=== PATIENT | female | born 1930 | race Caucasian/White ===

== ENCOUNTER 2018-03-26 20:42 | Observation (INO) ==
[2018-03-26 21:05] LABS: Basophils % 0.5 % (0.1-2.0); Eosinophils # 0.3 K/mm3 (0.0-0.4); Eosinophils % 4.8 % (0.1-12.0); Hematocrit 33.6 % (37.0-47.0); Hemoglobin 11.2 g/dL (12.2-16.2); Mean Corpuscular HGB Conc 33.3 g/dL (31.8-35.4); Mean Corpuscular Hemoglobin 31.3 pg (27.0-31.2); Mean Corpuscular Volume 93.9 fl (81-99); Mean Platelet Volume 8.2 fl (7.4-10.4); Monocytes # 0.4 K/mm3 (0.1-1.0); Neutrophils # 3.6 K/mm3 (1.8-7.8); Neutrophils % 67.8 % (37.0-80.0); Platelet Count 106 K/mm3 (142-424); Red Blood Count 3.58 M/mm3 (4.20-5.40); Red Cell Distribution Width 13.1 % (11.5-17.5); White Blood Count 5.2 K/mm3 (4.8-10.8)
[2018-03-26 21:17] LABS: Albumin Level 3.3 gm/dL (3.4-5.0); Albumin/Globulin Ratio 0.8 (1.1-1.8); Anion Gap 13.1 mEq/L (5-15); Bilirubin,Total 0.7 mg/dL (0.2-1.0); Calcium 8.4 mg/dL (8.5-10.1); Globulin 3.9 gm/dl (1.3-3.2); Potassium 4.1 mmoL/L (3.5-5.1); Total Protein,Serum 7.2 gm/dL (6.4-8.2)
[2018-03-26 21:18] LABS: Microscopic, Urine URINE MICROSCOPIC (MICROSCOPIC)
[2018-03-26 21:19] LABS: Appearance,Urine CLEAR (Clear); Bilirubin,Urine Negative (Negative); Blood, Urine Negative (Negative); Color,Urine YELLOW (Yellow); Glucose,Urine (UA) Negative (Negative); Ketones,Urine Negative (Negative); Leukocyte Esterase,Urine 1+ (Negative); PH,Urine 5.5 (5.0-8.5); Protein,Urine 1+ (Negative); Specific Gravity, Urine >= 1.030 (1.005-1.030); Urobilinogen,Urine 0.2 EU/dl (0.2)
[2018-03-26 21:30] LABS: Bacteria,Urine 4+ /lpf; RBC,Urine Occasional #/hpf (0-3); Squamous Epithelial Cell,Urine 20-50 #/hpf (0-5); WBC,Urine 20-50 #/hpf (0-3)
--- NOTE | 2018-03-26 21:57 | Emergency Department Note ---
ED Disposition Clinical Impression: Gastroenteritis, Renal insufficiency AAA (abdominal aortic aneurysm) Qualifiers: Presence of rupture: without rupture Qualified Code(s): I71.4 - Abdominal aortic aneurysm, without rupture Diabetes mellitus Qualifiers: Diabetes mellitus type: type 2 Diabetes mellitus termite technician insulin use: unspecified termite technician insulin use status Diabetes mellitus complication status: with unspecified complications Qualified Code(s): E11.8 - Type 2 diabetes mellitus with unspecified complications Disposition: Admitted as Observation Condition on Discharge: Good - Critical Care Critical Care Time: No Attestation: On 03/26/18, the high probability of a clinically significant, sudden or life threatening deterioration of the following system(s) required my full and direct attention, intervention and personal management. The time I documented below is in addition to time spent performing reported procedures but includes the following listed in this critical care notation. Medical Decision Making - Medical Records Medical records reviewed: Yes: I reviewed the patient's medical records. - [place] Inquiry Pt receiving controlled substance: No Vital Signs: 03/26/18 20:43 03/26/18 22:26 03/26/18 22:45 Temperature 98.5 F 98.6 F Temperature Source Oral Oral Pulse Rate Pulse Rate [Right Brachial] 76 88 78 Respiratory Rate 18 16 18 Blood Pressure Blood Pressure [Right Arm] 112/64 108/71 146/70 Blood Pressure Mean [Right Arm] 80 83 95 Blood Pressure Source [Right Arm] Automatic Cuff Automatic Cuff Blood Pressure Position [Right Arm] Sitting Sitting 02 Sat by Pulse Oximetry 95 95 97 Oxygen Delivery Method Room Air Room Air Room Air 03/26/18 22:49 Temperature 98.5 F Temperature Source Pulse Rate 79 Pulse Rate [Right Brachial] Respiratory Rate 16 Blood Pressure 109/58 Blood Pressure [Right Arm] Blood Pressure Mean [Right Arm] Blood Pressure Source [Right Arm] Blood Pressure Position [Right Arm] 02 Sat by Pulse Oximetry Oxygen Delivery Method Room Air - Lab Data Lab results reviewed: Yes: I reviewed the patient's lab results. Lab Results 03/26/18 20:50: WBC 5.2, RBC 3.58 L, Hgb 11.2 L, Hct 33.6 L, MCV 93.9, MCH 31.3 H, MCHC 33.3, RDW 13.1, Plt Count 106 L, MPV 8.2, Neut % (Auto) 67.8, Lymph % ( Auto) 19.0, [place] % (Auto) 8.0, Eos % (Auto) 4.8, Baso % (Auto) 0.5, Neut # (Auto ) 3.6, Lymph # (Auto) 1.0, [place] # (Auto) 0.4, Eos # (Auto) 0.3, Baso # (Auto) 0.0 03/26/18 20:50: Sodium 138, Potassium 4.1, Chloride 105, Carbon Dioxide 24, Anion Gap 13.1, BUN 23 H, Creatinine 1.24 H, Estimated Creat Clear 33, Estimated GFR 41 L, Est GFR ( Amer) 50 L, Glucose 129 H, Calcium 8.4 L, Total Bilirubin 0.7, AST 17, ALT 22, Alkaline Phosphatase 115, Total Protein 7.2 , Albumin 3.3 L, Globulin 3.9 H, Albumin/Globulin Ratio 0.8 L, Amylase 13 L 03/26/18 20:50: Lactate 2.3 H 03/26/18 20:50: Lipase 47 L 03/26/18 21:15: Urine Color Yellow, Urine Appearance Clear, Urine pH 5.5, Ur Specific [place] >= 1.030, Urine Protein 1+, Urine Glucose (UA) Negative, Urine Ketones Negative, Urine Blood Negative, Urine Nitrate Positive, Urine Bilirubin Negative, Urine Urobilinogen 0.2, Ur Leukocyte Esterase 1+ A, Urine RBC Occasional, Urine WBC 20-50, Ur Squamous Epith Cells 20-50, Ur Transition Epith Cell 3-5, Urine Bacteria 4+ Result diagrams: 03/26/18 20:50 03/26/18 20:50 Orders (Tests/Meds): ED MEDICATIONS Discontinued Medications Generic Name Dose Route Start Last Admin Trade Name Freq PRN Reason Stop Dose Admin Sodium Chloride 1,000 mls @ 999 mls/hr 03/26/18 21:00 03/26/18 20:57 Sod Chlor 0.9% 1000ml Bag IV 03/26/18 22:00 999 mls/hr .Q1H1M GLORIA Administration Ondansetron HCl 4 mg 03/26/18 20:54 03/26/18 20:57 Zofran 4mg/2ml Vial IV 03/26/18 20:55 4 mg ONCE ONE Administration ORDERS Category Date Time Status CT abdomen pelvis wo con Stat Cat Scan 03/26/18 20:54 Taken Diarrhea Panel, PCR Stat Lab 03/26/18 20:54 Ordered Lactic Acid Follow Up (RFLX 1) Stat Lab 03/26/18 21:21 Ordered Urine Culture Stat Micro 03/26/18 21:15 Received - CT Data CT Scan: Abdomen, Pelvis Time Received: 23:[address] Reviewed: Yes: I have viewed the radiologist's interpretation Preliminary Findings: Abnormal (nonspecific , aaa) - Physician Consults Physician Consulted: mohini Reason -: Admission Nausea/Vomiting/Diarrhea HPI - General Chief complaint: Nausea/Vomiting/Diarrhea Stated complaint: NAUSEA/VOMITING Time Seen by Provider: 03/26/18 21:00 Mode of Arrival: EMS Limitations: No Limitations Description of Symptoms (Recalled from ER Triage Doc. by RN): NAUSEA TODAY AND FEELING "HOT AND FREEZING." UNSURE IF IT WAS TODAY THAT SHE VOMITED LAST. RECEIVED FLU VACCINE MONDAY. PER EMS PT HAD DIARRHEA ALL OVER THE FLOOR. SHE TOLD EMS SHE DID VOMIT TODAY. - History of Present Illness HPI Narrative: wf brought by family with a couple day hx of vomiting and diarrhea with no sig abd pain but has weakness and dec ambulation with sl fe3ver and dec po intake MD complaint: nausea, vomiting, diarrhea Onset (ago): day(s) Associated Abdominal Pain: No Severity: moderate Associated symptoms: weakness - Related Data Home Medications Medication Instructions Recorded Confirmed Atorvastatin Calcium [Atorvastatin 80 mg PO DAILY 11/13/17 03/26/18 80mg Tab] Carvedilol [Carvedilol 6.25mg Tab] 6.25 mg PO BID 11/13/17 03/26/18 Clopidogrel Bisulfate [Plavix 75mg 75 mg PO DAILY 11/13/17 03/26/18 Tab] Isosorbide Mononitrate [Imdur 30mg 30 mg PO DAILY 11/13/17 03/26/18 ER tablet] Metformin HCl [Metformin HCl ER] 500 mg PO DAILY 11/13/17 03/26/18 Aspirin [Aspir 81] 81 mg PO DAILY 03/26/18 03/26/18 Cyanocobalamin (Vitamin B-12) 1,000 mcg PO DAILY 03/26/18 03/26/18 [B-12] Diphenoxylate HCl/Atropine 2.5 mg PO QIDP PRN 03/26/18 03/26/18 [Diphenoxylat-Atrop 2.5-0.025/5] Levothyroxine Sodium 88 mcg PO DAILY 03/26/18 03/26/18 [Levothyroxine 88mcg (0.088mg) Tab] Polyethylene Glycol 3350 [Miralax 17 gm PO DAILY 03/26/18 03/26/18 17gm Packet] Promethazine HCl [Phenergan 25mg 25 mg PO Q6HP PRN 03/26/18 03/26/18 tab] Allergies Allergy/AdvReac Type Severity Reaction Status Date / Time No Known Allergies Allergy Verified 03/26/18 20:50 [facility] History I have reviewed the patient's past medical history: Yes Medical History: Reports:: Diabetes Mellitus Type 2, Myocardial Infarction Denies:: Diabetes Mellitus Type 1 - Social History Alcohol Intake: never Occupational Status: retired Housing: house - Psychiatric History Expresses thoughts of harming self/others: None Suicide Plan Description: No Plan ROS Obtained: Yes All systems reviewed & no additional complaints - Constitutional Constitutional: Denies fever(s), Reports weakness - Eyes Eyes: Denies change in vision - ENT Ears, Nose, Mouth, and Throat: Denies sore throat - Cardiovascular Cardiovascular: Denies chest pain, Denies dyspnea - Respiratory Respiratory: No cough - Gastrointestinal Gastrointestingal: Reports: as per HPI, diarrhea, nausea, vomiting. Denies: bright red blood in stools, black, tarry stools - Genitourinary Female Genitourinary: Denies hematuria - Musculoskeletal Musculoskeletal: Denies joint pain, Denies back pain - Integumentary/Breasts Skin/Breast: Denies rash - Neurologic Neurologic: Denies headache(s), Denies seizure-like activity, Reports weakness Physical Exam - General General appearance: in no apparent distress - Head Head exam: normocephalic - Eye Eye exam: Present: PERRL, EOMI. Absent: scleral icterus - ENT ENT exam: Present: mucous membranes dry - Neck Neck exam: Present: trachea midline - Respiratory Respiratory exam: Present: other (dec bs bilat ). Absent: respiratory distress - Cardiovascular Cardiovascular exam: Present: regular rate, systolic murmur, +S4 - Abdominal Exam Abdominal exam: Present: soft - Extremities Exam Extremities exam: Present: pedal edema. Absent: calf tenderness - Neurological Exam Neurological exam: Present: alert, CN II-XII intact. Absent: normal gait, reflexes normal - Psychiatric Psychiatric exam: Present: normal affect - Skin Skin exam: Absent: rash
[2018-03-27 05:59] LABS: Basophils % 0.4 % (0.1-2.0); Eosinophils # 0.1 K/mm3 (0.0-0.4); Eosinophils % 2.8 % (0.1-12.0); Hematocrit 29.7 % (37.0-47.0); Lymphocytes % 26.5 K/mm3 (10-50); Mean Corpuscular HGB Conc 32.6 g/dL (31.8-35.4); Mean Corpuscular Hemoglobin 30.9 pg (27.0-31.2); Mean Corpuscular Volume 94.9 fl (81-99); Mean Platelet Volume 8.6 fl (7.4-10.4); Monocytes # 0.3 K/mm3 (0.1-1.0); Monocytes % 8.1 % (1.7-9.3); Neutrophils # 2.3 K/mm3 (1.8-7.8); Neutrophils % 62.2 % (37.0-80.0); Platelet Count 90 K/mm3 (142-424); Red Blood Count 3.13 M/mm3 (4.20-5.40); Red Cell Distribution Width 13.1 % (11.5-17.5); White Blood Count 3.8 K/mm3 (4.8-10.8)
[2018-03-27 06:07] LABS: Anion Gap 10.9 mEq/L (5-15); Calcium 7.8 mg/dL (8.5-10.1); Potassium 3.9 mmoL/L (3.5-5.1)
[2018-03-27 06:18] LABS: Hemoglobin 9.9 g/dL (12.2-16.2)
--- NOTE | 2018-03-27 07:37 | Pharmacy Consult Notes ---
[facility] Pharmacy VTE Monitoring - Patient Demographics Admission date: 03/26/18 Report Date: 03/27/18 Time: 07:37 Allergies/Adverse Reactions: Patient Allergies No Known Allergies Allergy (Verified 03/26/18 20:50) Height: 1.63 m Weight: 70.874 kg Patient Problems: Current Active Problems Gastroenteritis (Acute) AAA (abdominal aortic aneurysm) (Acute) Renal insufficiency (Acute) Diabetes mellitus (Acute) - VTE Risk Labs: VTE Related Lab Results Hgb 9.9 g/dL (12.2-16.2) L D 03/27/18 05:20 Hct 29.7 % (37.0-47.0) L 03/27/18 05:20 Plt Count 90 K/mm3 (142-424) L 03/27/18 05:20 BUN 18 mg/dL (7-18) 03/27/18 05:20 Creatinine 1.00 mg/dL (0.55-1.02) 03/27/18 05:20 Estimated Creat Clear 45 mL/min (0-300) 03/27/18 05:20 VTE Score: 6 VTE Risk Level: Moderate Risk - Prophylaxis VTE Prophylaxis Ordered?: Yes Types of VTE Prophylaxis: TEDS Knee High Location of Applied Device: Bilateral Lower Extremeties - VTE Diagnosis Confirmed Treatment or plan recommended: Continue Current Treatment
--- NOTE | 2018-03-27 18:07 | History & Physical Report ---
*Admission Date: 03/26/18 *Chief complaint: Nausea and vomiting *History of present illness: Ms. Chu is an 87-year-old female who presents from home via EMS due to 3-4 days of subjective fever and chills, and 1 day of nausea and vomiting. Her initial thought was this was a reaction to her flu shot which she received Monday. Workup in the emergency room showed urine significant for leukoesterase and nitrates, urine culture growing gram-negative rods and > 100, 000 CFU's. Patient denies any confusion, altered mental status. Reports feeling better this morning. Says she has had urinary tract infections in the past and they presented a similar manner. Denies cough, congestion, shortness of breath, chest pain, palpitations. [facility] History Medical History: Reports:: Cancer (stomach), Diabetes Mellitus Type 2, Myocardial Infarction Denies:: Diabetes Mellitus Type 1 Other Medical History: Reports: Hypothyroidism Other Surgeries: Yes: Cancer Surgery (Stomach), Cardiac Catheterization, Cholecystectomy, - *Social History Educational Level: Attended College Smoking Status: Never smoker Alcohol Intake: never Occupational Status: retired Housing: house Household Members: family - Psychiatric History Expresses thoughts of harming self/others: None Suicide Plan Description: No Plan Review of Systems - Review of Systems Review of systems:: pertinent systems reviewed and negative unless documented below - *Neurologic Reports weakness, Denies headache(s), Denies seizure-like activity Meds Home Medications Medication Instructions Recorded Confirmed Type Atorvastatin Calcium [Atorvastatin 80 mg PO DAILY 11/13/17 03/26/18 History 80mg Tab] Carvedilol [Carvedilol 6.25mg Tab] 6.25 mg PO BID 11/13/17 03/26/18 History Clopidogrel Bisulfate [Plavix 75mg 75 mg PO DAILY 11/13/17 03/26/18 History Tab] Metformin HCl [Metformin HCl ER] 500 mg PO DAILY 11/13/17 03/26/18 History Aspirin [Aspir 81] 81 mg PO DAILY 03/26/18 03/26/18 History Cyanocobalamin (Vitamin B-12) 1,000 mcg PO DAILY 03/26/18 03/26/18 History [B-12] Diphenoxylate HCl/Atropine 2.5 mg PO QIDP PRN 03/26/18 03/26/18 History [Diphenoxylat-Atrop 2.5-0.025/5] Levothyroxine Sodium 88 mcg PO DAILY 03/26/18 03/26/18 History [Levothyroxine 88mcg (0.088mg) Tab] Polyethylene Glycol 3350 [Miralax 17 gm PO DAILY 03/26/18 03/26/18 History 17gm Packet] Promethazine HCl [Phenergan 25mg 25 mg PO Q6HP PRN 03/26/18 03/26/18 History tab] Isosorbide Mononitrate [Imdur 60mg 60 mg PO DAILY 03/27/18 03/27/18 History ER tablet] Allergies Allergy/AdvReac Type Severity Reaction Status Date / Time No Known Allergies Allergy Verified 03/26/18 20:50 Exam Vital signs and Labs for Last 24 Hours: Temp Pulse Resp BP Pulse Ox 99.8 F H 76 18 148/74 95 03/27/18 15:23 03/27/18 15:23 03/27/18 15:23 03/27/18 15:23 03/27/18 15:23 Laboratory Results - last 24 hr 03/26/18 20:50: WBC 5.2, RBC 3.58 L, Hgb 11.2 L, Hct 33.6 L, MCV 93.9, MCH 31.3 H, MCHC 33.3, RDW 13.1, Plt Count 106 L, MPV 8.2, Neut % (Auto) 67.8, Lymph % ( Auto) 19.0, [place] % (Auto) 8.0, Eos % (Auto) 4.8, Baso % (Auto) 0.5, Neut # (Auto ) 3.6, Lymph # (Auto) 1.0, [place] # (Auto) 0.4, Eos # (Auto) 0.3, Baso # (Auto) 0.0 03/26/18 20:50: Sodium 138, Potassium 4.1, Chloride 105, Carbon Dioxide 24, Anion Gap 13.1, BUN 23 H, Creatinine 1.24 H, Estimated Creat Clear 33, Estimated GFR 41 L, Est GFR ( Amer) 50 L, Glucose 129 H, Calcium 8.4 L, Total Bilirubin 0.7, AST 17, ALT 22, Alkaline Phosphatase 115, Total Protein 7.2 , Albumin 3.3 L, Globulin 3.9 H, Albumin/Globulin Ratio 0.8 L, Amylase 13 L 03/26/18 20:50: Lactate 2.3 H 03/26/18 20:50: Lipase 47 L 03/26/18 21:15: Urine Color Yellow, Urine Appearance Clear, Urine pH 5.5, Ur Specific [place] >= 1.030, Urine Protein 1+, Urine Glucose (UA) Negative, Urine Ketones Negative, Urine Blood Negative, Urine Nitrate Positive, Urine Bilirubin Negative, Urine Urobilinogen 0.2, Ur Leukocyte Esterase 1+ A, Urine RBC Occasional, Urine WBC 20-50, Ur Squamous Epith Cells 20-50, Ur Transition Epith Cell 3-5, Urine Bacteria 4+ 03/26/18 23:40: Troponin I < 0.02 03/27/18 01:15: Lactate 1.0 03/27/18 02:20: Troponin I < 0.02 03/27/18 05:20: Troponin I < 0.02 03/27/18 05:20: WBC 3.8 L D, RBC 3.13 L, Hgb 9.9 L D, Hct 29.7 L, MCV 94.9, MCH 30.9, MCHC 32.6, RDW 13.1, Plt Count 90 L, MPV 8.6, Neut % (Auto) 62.2, Lymph % (Auto) 26.5, [place] % (Auto) 8.1, Eos % (Auto) 2.8, Baso % (Auto) 0.4, Neut # ( Auto) 2.3, Lymph # (Auto) 1.0, [place] # (Auto) 0.3, Eos # (Auto) 0.1, Baso # (Auto ) 0.0 03/27/18 05:20: Sodium 141, Potassium 3.9, Chloride 109 H, Carbon Dioxide 25, Anion Gap 10.9, BUN 18, Creatinine 1.00, Estimated Creat Clear 45, Estimated GFR 53 L, Est GFR ( Amer) 64 D, Glucose 94 D, Calcium 7.8 L, Magnesium 1.6 03/27/18 06:09: POC Glucose 94 03/27/18 11:03: POC Glucose 114 H 03/27/18 17:01: POC Glucose 139 H I & O for Last 24 hours: Intake & Output 03/24/18 03/25/18 03/26/18 03/27/18 23:59 23:59 23:59 23:59 Intake Total 1000 / 1000 1698 / 1698 Output Total 550 / 550 Balance 1000 / 1000 1148 / 1148 Weight 70.874 kg 70.874 kg Microbiology Reports for the Last 24 Hours: Microbiology 03/26/18 21:15 Urine,Catheterized Urine Culture - Preliminary Gram Negative Rods - *Routine HEENT Exam Head: Present: normocephalic, atraumatic Eye: Present: EOMI, PERRL ENT: Present: mucous membranes moist - *Routine Neck Exam Present: supple, full ROM. Absent: JVD - *Routine Respiratory Exam Present: CTA bilaterally. Absent: accessory muscle use, prolonged expiratory phase, rales, wheezes - *Routine Cardiovascular Exam Present: RRR, Normal S1, Normal S2. Absent: murmur - *Routine Abdominal Exam Present: soft, normoactive bowel sounds, tenderness (Suprapubic) - *Routine Rectal Exam Patient deferred: visual exam - *Routine Exam Patient deferred: external exam - *Routine Extremities Exam Absent: cyanosis, clubbing, edema - *Routine Skin Exam Present: intact. Absent: cyanosis - *Routine Neurological Exam Present: alert, oriented X3, CN II-XII intact. Absent: altered mental status H&P: Result - Impressions UA significant for leukoesterase and nitrite, urine culture positive for gram- negative rods Assessment and Plan (1) Urinary tract infection Current visit: Yes Status: Acute Qualifiers: Urinary tract infection type: acute cystitis Category: Medical Code(s): N39.0 - Urinary tract infection, site not specified Continue Rocephin, culture pending speciation and sensitivity, de-escalate antibiotics as results return. (2) Renal insufficiency Current visit: Yes Status: Acute Category: Medical Code(s): N28.9 - Disorder of kidney and ureter, unspecified Acute kidney injury, resolved with fluid resuscitation. Monitor with morning labs. Avoid nephrotoxic's. (3) Coronary artery disease Current visit: Yes Status: Chronic Qualifiers: Associated angina: without angina Category: Medical Code(s): I25.10 - Atherosclerotic heart disease of solomon coronary artery without angina pectoris Continue home regimen of goal-directed therapy with Plavix, aspirin, carvedilol , isosorbide (4) Hypothyroidism (acquired) Current visit: Yes Status: Chronic Category: Medical Code(s): E03.9 - Hypothyroidism, unspecified Continue home levothyroxine
[2018-03-28 06:09] LABS: Anion Gap 9.6 mEq/L (5-15); Calcium 8.1 mg/dL (8.5-10.1); Potassium 3.6 mmoL/L (3.5-5.1)
[2018-03-28 06:13] LABS: Basophils % 0.3 % (0.1-2.0); Eosinophils # 0.3 K/mm3 (0.0-0.4); Eosinophils % 6.4 % (0.1-12.0); Hematocrit 29.7 % (37.0-47.0); Hemoglobin 9.9 g/dL (12.2-16.2); Lymphocytes # 1.1 K/mm3 (0.7-4.5); Lymphocytes % 22.4 K/mm3 (10-50); Mean Corpuscular HGB Conc 33.1 g/dL (31.8-35.4); Mean Corpuscular Hemoglobin 31.4 pg (27.0-31.2); Mean Corpuscular Volume 94.8 fl (81-99); Mean Platelet Volume 8.3 fl (7.4-10.4); Monocytes # 0.4 K/mm3 (0.1-1.0); Monocytes % 8.4 % (1.7-9.3); Neutrophils % 62.4 % (37.0-80.0); Platelet Count 89 K/mm3 (142-424); Red Blood Count 3.14 M/mm3 (4.20-5.40); Red Cell Distribution Width 13.2 % (11.5-17.5); White Blood Count 4.8 K/mm3 (4.8-10.8)
--- NOTE | 2018-03-28 08:17 | Discharge Summary ---
General - General Admission date:: 03/26/18 Discharge date: 03/28/18 HPI HPI: Ms. Chu is an 87-year-old female who presents from home via EMS due to 3-4 days of subjective fever and chills, and 1 day of nausea and vomiting. Her initial thought was this was a reaction to her flu shot which she received Monday. Workup in the emergency room showed urine significant for leukoesterase and nitrates, urine culture growing gram-negative rods and > 100,000 CFU's. Patient denies any confusion, altered mental status. Reports feeling better this morning. Says she has had urinary tract infections in the past and they presented a similar manner. Denies cough, congestion, shortness of breath, chest pain, palpitations. Hospital Course Hospital Course: Patient was admitted, placed on ceftriaxone for presumptive UTI. She did indeed have a urinary tract infection with E. coli, pansensitive to all antibiotics tested. This morning she is vastly improved, no further nausea or vomiting, eating well, has resumed most of her self-care activities and wishes to be discharged home. Plan will be to discharge home with Cefdinir. I will follow her in the office in 1 week. Objective Vital signs: Temp Pulse Resp BP Pulse Ox 98.8 F 82 18 130/65 94 L 03/28/18 08:00 03/28/18 08:00 03/28/18 08:00 03/28/18 08:00 03/28/18 08:00 Narrative: Patient is awake, alert, oriented 3. Oropharynx clear. Moist. Lungs have good air movement, heart rate regular. Trace ankle edema as previous noted. Move all arms and legs without problems. No CVA tenderness or abdominal numbness. Results Labs on day of discharge: Labs from last 24 hours 03/28/18 03/28/18 03/28/18 06:29 05:36 05:36 WBC 4.8 D RBC 3.14 L Hgb 9.9 L Hct 29.7 L MCV 94.8 MCH 31.4 H MCHC 33.1 RDW 13.2 Plt Count 89 L MPV 8.3 Neut % (Auto) 62.4 Lymph % (Auto) 22.4 [place] % (Auto) 8.4 Eos % (Auto) 6.4 Baso % (Auto) 0.3 Neut # (Auto) 3.0 Lymph # (Auto) 1.1 [place] # (Auto) 0.4 Eos # (Auto) 0.3 Baso # (Auto) 0.0 Sodium 136 Potassium 3.6 Chloride 106 Carbon Dioxide 24 Anion Gap 9.6 BUN 15 Creatinine 0.98 Estimated Creat Clear 45 Estimated GFR 54 L Est GFR ( Amer) 65 Glucose 112 H POC Glucose 116 H Calcium 8.1 L 03/27/18 03/27/18 03/27/18 21:22 17:01 11:03 WBC RBC Hgb Hct MCV MCH MCHC RDW Plt Count MPV Neut % (Auto) Lymph % (Auto) [place] % (Auto) Eos % (Auto) Baso % (Auto) Neut # (Auto) Lymph # (Auto) [place] # (Auto) Eos # (Auto) Baso # (Auto) Sodium Potassium Chloride Carbon Dioxide Anion Gap BUN Creatinine Estimated Creat Clear Estimated GFR Est GFR ( Amer) Glucose POC Glucose 118 H 139 H 114 H Calcium DS: Diagnosis - Discharge Diagnosis (1) Urinary tract infection Status: Acute (2) Renal insufficiency Status: Resolved (3) Coronary artery disease Status: Chronic (4) Hypothyroidism (acquired) Status: Chronic Discharge Plan - Patient Discharge Instructions ACTIVITY: Continue current activity DIET: continue same diet - Follow up Plan Follow up with: Jt Santos MD [Primary Care Provider] - 1 week Disposition: Home, Self-Skilled Nursing Medications: Home Medications Medication Instructions Recorded Confirmed Type Atorvastatin Calcium [Atorvastatin 80 mg PO DAILY 11/13/17 03/26/18 History 80mg Tab] Carvedilol [Carvedilol 6.25mg Tab] 6.25 mg PO BID 11/13/17 03/26/18 History Clopidogrel Bisulfate [Plavix 75mg 75 mg PO DAILY 11/13/17 03/26/18 History Tab] Metformin HCl [Metformin HCl ER] 500 mg PO DAILY 11/13/17 03/26/18 History Aspirin [Aspir 81] 81 mg PO DAILY 03/26/18 03/26/18 History Cyanocobalamin (Vitamin B-12) 1,000 mcg PO DAILY 03/26/18 03/26/18 History [B-12] Diphenoxylate HCl/Atropine 2.5 mg PO QIDP PRN 03/26/18 03/26/18 History [Diphenoxylat-Atrop 2.5-0.025/5] Levothyroxine Sodium 88 mcg PO DAILY 03/26/18 03/26/18 History [Levothyroxine 88mcg (0.088mg) Tab] Polyethylene Glycol 3350 [Miralax 17 gm PO DAILY 03/26/18 03/26/18 History 17gm Packet] Promethazine HCl [Phenergan 25mg 25 mg PO Q6HP PRN 03/26/18 03/26/18 History tab] Isosorbide Mononitrate [Imdur 60mg 60 mg PO DAILY 03/27/18 03/27/18 History ER tablet] Prescriptions/Medication Reconciliation: New Cefdinir [Omnicef 300mg Capsule] 300 mg PO BID #10 cap Continue Clopidogrel Bisulfate [Plavix 75mg Tab] 75 mg PO DAILY Carvedilol [Carvedilol 6.25mg Tab] 6.25 mg PO BID Atorvastatin Calcium [Atorvastatin 80mg Tab] 80 mg PO DAILY Levothyroxine Sodium [Levothyroxine 88mcg (0.088mg) Tab] 88 mcg PO DAILY Polyethylene Glycol 3350 [Miralax 17gm Packet] 17 gm PO DAILY Promethazine HCl [Phenergan 25mg tab] 25 mg PO Q6HP PRN PRN Reason: Nausea And Vomiting Metformin HCl [Metformin HCl ER] 500 mg PO DAILY Aspirin [Aspir 81] 81 mg PO DAILY Cyanocobalamin (Vitamin B-12) [B-12] 1,000 mcg PO DAILY Diphenoxylate HCl/Atropine [Diphenoxylat-Atrop 2.5-0.025/5] 2.5 mg PO QIDP PRN PRN Reason: OTHER Isosorbide Mononitrate [Imdur 60mg ER tablet] 60 mg PO DAILY
== END 2018-03-28 10:19 | disposition home or self-care (01) ==
LOC: ER 20:42 → 2ND 20:42
PROVIDERS: ADMIT Family Medicine; ATTEND Internal Medicine Adolescent Medicine
CPT/HCPCS: 36415; 74176; 80048; 80053; 81001; 82150; 82962; 83605; 83690; 83735; 84484; 85025; 87086; 87088; 87186; 96365; 96375; 99284; G0378; J2405

== ENCOUNTER 2018-07-23 11:01 | Inpatient (IN) ==
[2018-07-23 11:20] LABS: Basophils % 0.4 % (0.1-2.0); Eosinophils # 0.4 K/mm3 (0.0-0.4); Eosinophils % 4.8 % (0.1-12.0); Hematocrit 33.2 % (37.0-47.0); Hemoglobin 10.6 g/dL (12.2-16.2); Lymphocytes # 1.8 K/mm3 (0.7-4.5); Lymphocytes % 20.4 % (10-50); Mean Corpuscular HGB Conc 31.8 g/dL (31.8-35.4); Mean Corpuscular Volume 97.3 fl (81-99); Monocytes # 0.5 K/mm3 (0.1-1.0); Monocytes % 5.4 % (1.7-9.3); Platelet Count 126 K/mm3 (142-424); Red Blood Count 3.41 M/mm3 (4.20-5.40); Red Cell Distribution Width 14.8 % (11.5-17.5); White Blood Count 8.7 K/mm3 (4.8-10.8)
--- NOTE | 2018-07-23 11:25 | Emergency Department Note ---
ED Disposition Clinical Impression: STEMI (ST elevation myocardial infarction) Disposition: Admitted as Observation Condition on Discharge: Serious Referrals: Provider,Referral, [Primary Care Provider] - Time of Disposition: 12:15 - Critical Care Critical Care Time: No Attestation: On 07/23/18, the high probability of a clinically significant, sudden or life threatening deterioration of the following system(s) required my full and direct attention, intervention and personal management. The time I documented below is in addition to time spent performing reported procedures but includes the following listed in this critical care notation. Medical Decision Making - [place] Inquiry Pt receiving controlled substance: No Vital Signs: 07/23/18 11:01 07/23/18 11:35 07/23/18 12:32 Temperature 98.3 F 98.3 F Temperature Source Oral Oral Pulse Rate 62 Pulse Rate [Left Radial] 56 L Respiratory Rate 20 18 Blood Pressure 145/78 H Blood Pressure [Left Arm] 159/79 H Blood Pressure [Right Arm] 150/75 H 167/41 H Blood Pressure Mean [Left Arm] 105 Blood Pressure Mean [Right Arm] 100 83 Blood Pressure Source Automatic Cuff Blood Pressure Source [Left Arm] Automatic Cuff Blood Pressure Source [Right Arm] Automatic Cuff Blood Pressure Position Sitting Blood Pressure Position [Left Arm] Sitting Blood Pressure Position [Right Arm] Sitting Sitting 02 Sat by Pulse Oximetry 98 Oxygen Delivery Method Room Air Room Air - Lab Data Lab Results 07/23/18 11:07: WBC 8.7, RBC 3.41 L, Hgb 10.6 L, Hct 33.2 L, MCV 97.3, MCH 31.0, MCHC 31.8, RDW 14.8, Plt Count 126 L, MPV 8.0, Neut % (Auto) 69.0, Lymph % (Auto) 20.4, [place] % (Auto) 5.4, Eos % (Auto) 4.8, Baso % (Auto) 0.4, Neut # (Auto) 6.0, Lymph # (Auto) 1.8, [place] # (Auto) 0.5, Eos # (Auto) 0.4, Baso # (Auto) 0.0 07/23/18 11:07: PT 10.7, INR 1.04 07/23/18 11:07: Sodium 139, Potassium 4.3, Chloride 106, Carbon Dioxide 24, Anion Gap 13.3, BUN 19 H, Creatinine 1.04 H, Estimated Creat Clear 40, Estimated GFR 50 L, Est GFR ( Amer) 61, Glucose 172 H, Calcium 8.8, Troponin I 0.33 H Result diagrams: 07/23/18 11:07 07/23/18 11:07 Orders (Tests/Meds): ED MEDICATIONS Generic Name Dose Route Start Last Admin Trade Name Freq PRN Reason Stop Dose Admin Diphenhydramine HCl 50 mg 07/23/18 12:32 Benadryl 50mg/1ml Vial IV 07/23/18 12:33 ONCE ONE Fentanyl Citrate 50 mcg 07/23/18 12:32 Fentanyl 250mcg/5ml Vial IV 07/24/18 12:33 Q3MINP PRN Moderate to Severe Pain Fentanyl Citrate 25 mcg 07/23/18 12:32 Fentanyl 250mcg/5ml Vial IV 07/24/18 12:33 Q3MINP PRN Moderate to Severe Pain Flumazenil 0.2 mg 07/23/18 12:32 Romazicon 0.1mg/Ml 5ml Vial IV 07/23/18 23:00 NEEDED PRN Sedation Heparin Sodium (Porcine) 10,000 unit 07/23/18 12:32 Heparin 1,000 Units/Ml 10ml Vial (Leather Lacer) IV 07/23/18 16:33 NEEDED PRN Emergency Box Asphalt Tamping Machine Operator Heparin Sodium/Sodium Chloride 3,000 unit 07/23/18 12:32 Heparin 1000 Units/500ml Ns (Leather Lacer) IV 07/23/18 12:33 ONCE ONE Sodium Chloride 1,000 mls @ 25 mls/hr 07/23/18 12:45 Sod Chlor 0.9% 1000ml Bag IV 07/24/18 12:33 .Q25H GLORAI Lidocaine HCl 20 ml 07/23/18 12:32 Lidocaine 1% 20ml Mdv IJ 07/23/18 12:33 ONCE ONE Midazolam HCl 1 mg 07/23/18 12:32 Midazolam 2mg/2ml Vial IV 07/24/18 12:33 Q3MINP PRN Sedation Midazolam HCl 1 mg 07/23/18 12:32 Midazolam 1mg/Ml 5ml Vial IV 07/24/18 12:33 Q3MINP PRN Sedation Naloxone HCl 0.4 mg 07/23/18 12:32 Narcan 0.4mg/Ml Vial IV 07/24/18 12:33 Q5MINP PRN Decreased respirations Nitroglycerin 800 mcg 07/23/18 12:32 Nitroglycerin 800mcg/8ml Syr (Leather Lacer) IV 07/24/18 12:33 NEEDED PRN Emergency Box Asphalt Tamping Machine Operator Sodium Chloride 10 ml 07/23/18 11:12 Saline Flush 10ml Syringe IV 08/22/18 11:11 NEEDED PRN Maintain IV Site Sodium Chloride 10 ml 07/23/18 12:32 Saline Flush 10ml Syringe IV 08/22/18 12:31 NEEDED PRN Maintain IV Site Verapamil HCl 2.5 mg 07/23/18 12:32 Verapamil 2.5mg/Ml 2ml Vial IV 07/23/18 12:33 ONCE ONE Discontinued Medications Generic Name Dose Route Start Last Admin Trade Name Freq PRN Reason Stop Dose Admin Heparin Sodium (Porcine) 6,600 unit 07/23/18 12:09 07/23/18 12:15 Heparin Sodium 5,000 Units/Ml Vial 100 unit/kg (6600 unit) 07/23/18 12:10 6,600 unit IV Administration ONCE ONE Morphine Sulfate 2 mg 07/23/18 12:08 07/23/18 12:33 Morphine 2mg/Ml Syringe IV 07/23/18 12:09 2 mg ONCE ONE Administration Nitroglycerin 1 gm 07/23/18 11:22 07/23/18 12:00 Nitroglycerin 1 Inch Oint Udp TD 07/23/18 11:23 1 gm ONCE ONE Administration Ondansetron HCl 4 mg 07/23/18 12:32 07/23/18 12:33 Zofran 4mg/2ml Vial IV 07/23/18 12:33 4 mg ONCE ONE Administration Ticagrelor 180 mg 07/23/18 11:23 07/23/18 11:33 Brilinta 90mg Tablet PO 07/23/18 11:24 180 mg ONCE ONE Administration Chest Pain HPI - General Chief Complaint: Chest Pain Stated Complaint: chest pain Time Seen by Provider: 07/23/18 11:10 Mode of Arrival: Wheelchair Limitations: No Limitations Description of Symptoms (Recalled from ER Triage Doc. by RN): Pt states that she started with chest pain one hour ago with pain going down her left arm. States she took 3 nitro pills and a full dose aspirin and her pain has decreased. - History of Present Illness MD complaint: chest pain Onset (ago): hour(s) Duration: constant, other (now improved) Pain location: substernal, left chest Severity: moderate Quality: heaviness Relieving factors: nitroglycerin Exacerbating factors: nothing Risk Factors for CAD: Hypertension, Hypercholesterolemia, Family Hx of CAD Treatments prior to or on arrival for Cardiac Chest Pain: aspirin, nitroglycerin - Related Data Home Medications Medication Instructions Recorded Confirmed Atorvastatin Calcium [Atorvastatin 80 mg PO DAILY 11/13/17 07/23/18 80mg Tab] Carvedilol [Carvedilol 6.25mg Tab] 6.25 mg PO BID 11/13/17 07/23/18 Clopidogrel Bisulfate [Plavix 75mg 75 mg PO DAILY 11/13/17 07/23/18 Tab] Metformin HCl [Metformin HCl ER] 500 mg PO DAILY 11/13/17 07/23/18 Aspirin [Aspir 81] 81 mg PO DAILY 03/26/18 07/23/18 Cyanocobalamin (Vitamin B-12) 1,000 mcg PO DAILY 03/26/18 07/23/18 [B-12] Levothyroxine Sodium 88 mcg PO DAILY 03/26/18 07/23/18 [Levothyroxine 88mcg (0.088mg) Tab] Polyethylene Glycol 3350 [Miralax 17 gm PO DAILY 03/26/18 07/23/18 17gm Packet] Isosorbide Mononitrate [Imdur 60mg 60 mg PO DAILY 03/27/18 07/23/18 ER tablet] Allergies Allergy/AdvReac Type Severity Reaction Status Date / Time No Known Allergies Allergy Verified 03/26/18 20:50 [facility] History - Hepatitis A Screen Drug use history?: No High risk sexual behaviors?: No History of sexually transmitted infection?: No Currently employed?: No Childcare worker?: No Do you have indoor plumbing?: Yes Do you have electricity?: Yes Attestation statement:: This patient has been screened for Hepatitis A risk factors. I have reviewed the patient's past medical history: Yes Medical History: Reports:: Cancer (stomach), Diabetes Mellitus Type 2, Myocardial Infarction Denies:: Diabetes Mellitus Type 1, MRSA, Seizures Other Medical History: Reports: Hypothyroidism Other Surgeries: Yes: Cancer Surgery (Stomach), Cardiac Catheterization, Cholecystectomy, Amputation: No Fractures: No - Social History Smoking Status: Never smoker Alcohol Intake: never Occupational Status: retired Housing: house Household Members: family - Psychiatric History Expresses thoughts of harming self/others: None Suicide Plan Description: No Plan ROS Obtained: Yes All systems reviewed & no additional complaints - Constitutional Constitutional: Reports system reviewed and no additional complaints, except as docu, Reports weakness - Eyes Eyes: Reports system reviewed and no additional complaints, except as docu - ENT Ears, Nose, Mouth, and Throat: Reports system reviewed and no additional complaints, except as docu, Denies throat swelling - Cardiovascular Cardiovascular: Reports system reviewed and no additional complaints, except as docu, Reports chest pain, Reports chest pain at rest, Reports chest pain with activity, Denies dyspnea on exertion, Denies rapid heart rate, Denies slow heart rate - Respiratory Respiratory: Yes system reviewed and no additional complaints, except as docu, No chest congestion, No cough, No non-productive cough, No pain with cough - Musculoskeletal Musculoskeletal: Denies muscle cramps, Denies muscle weakness, Denies muscle aches, Denies stiffness - Integumentary/Breasts Skin/Breast: Reports system reviewed and no additional complaints, except as docu, Denies rash - Neurologic Neurologic: Reports system reviewed and no additional complaints, except as docu, Denies focal weakness, Denies seizure-like activity, Denies sensory deficit - Endocrine Endocrine: Denies palpitations - Hematologic/Lymphatic Henatologic/Lymphatic: Denies easy bleeding, Denies easy bruising Physical Exam - General General appearance: appears intoxicated - Head Head exam: atraumatic, normocephalic - ENT ENT exam: Present: normal exam, normal oropharynx, mucous membranes moist, mucous membranes dry - Neck Neck exam: Present: normal inspection, full ROM - Chest Chest inspection: Present: normal inspection, symmetric chest wall rise - Respiratory Respiratory exam: Present: normal lung sounds bilaterally, respiratory distress, wheezes - Cardiovascular Cardiovascular exam: Present: regular rate, normal rhythm, normal heart sounds. Absent: bradycardia, tachycardia, JVD - Abdominal Exam Abdominal exam: Present: soft. Absent: distention, tenderness, guarding, rebound, rigidity, mass - Extremities Exam Extremities exam: Present: normal inspection, full ROM, normal capillary refill. Absent: tenderness - Neurological Exam Neurological exam: Present: alert
[2018-07-23 11:28] LABS: INR 1.04 (0.9-1.1); Prothrombin Time 10.7 seconds (9.4-11.8)
[2018-07-23 11:35] LABS: Anion Gap 13.3 mEq/L (5-15); Calcium 8.8 mg/dL (8.5-10.1); Potassium 4.3 mmoL/L (3.5-5.1)
--- NOTE | 2018-07-23 19:08 | History & Physical Report ---
*Admission Date: 07/23/18 *Chief complaint: Chest pain and dyspnea *History of present illness: 87-year-old white female with history of type 2 diabetes, controlled well with metformin, hyperlipidemia and previous history of coronary atherosclerosis with several stent placements in the remote past-detailed in cardiology procedure note-who awoke this morning with some crushing chest pain and dyspnea, was brought to the emergency department. Elevated ST segments and troponins were noted, diagnosed with STEMI and taken emergently to the catheterization lab where 2 stents were placed. I am seeing her now on the floor and she is pain-free and comfortable. [facility] History I have reviewed the patient's past medical history: Yes Medical History: Reports:: Cancer (stomach), Coronary Artery Disease, Diabetes Mellitus Type 2, Myocardial Infarction Denies:: Diabetes Mellitus Type 1, MRSA, Seizures Other Medical History: Reports: Hypothyroidism Laterality Cases: Bilateral: Total Knee Replacement Other Surgeries: Yes: Cancer Surgery (Stomach), Cardiac Catheterization, Cholecystectomy, Coronary Stent, Amputation: No Fractures: No - *Social History Educational Level: Attended College Smoking Status: Never smoker Alcohol Intake: never Occupational Status: retired Housing: house Household Members: family - Psychiatric History Expresses thoughts of harming self/others: None Suicide Plan Description: No Plan *Family Hx:: No significant family history Review of Systems - Review of Systems Review of systems:: pertinent systems reviewed and negative unless documented below - Constitutional Denies anorexia, Denies body ache(s) - Eyes Denies blind spots - ENT Denies abnormal hearing, Denies bleeding gums - *Cardiovascular Reports chest pain, Reports chest pain at rest, Reports chest pain with activity, Reports shortness of breath, Reports shortness of breath with activity, Reports irregular heart rhythm - *Respiratory Denies change in phlegm color, Denies chest congestion, Denies cough - *Gastrointestinal Denies abdominal pain, Denies belching, Denies bloating - *Musculoskeletal Denies abnormal walking, Denies joint pain - Integumentary/Breasts Denies acne - *Neurologic Reports weakness, Denies localized weakness, Denies seizure-like activity, Denies sensory deficit - Psychiatric Denies abnormal sleep pattern, Denies lack of enjoyment - Endocrine Denies cold intolerance, Denies rapid, pounding, or irregular heartbeat Meds Home Medications Medication Instructions Recorded Confirmed Type Atorvastatin Calcium [Atorvastatin 80 mg PO DAILY 11/13/17 07/23/18 History 80mg Tab] Carvedilol [Carvedilol 6.25mg Tab] 6.25 mg PO BID 11/13/17 07/23/18 History Clopidogrel Bisulfate [Plavix 75mg 75 mg PO DAILY 11/13/17 07/23/18 History Tab] Metformin HCl [Metformin HCl ER] 500 mg PO DAILY 11/13/17 07/23/18 History Aspirin [Aspir 81] 81 mg PO DAILY 03/26/18 07/23/18 History Cyanocobalamin (Vitamin B-12) 1,000 mcg PO DAILY 03/26/18 07/23/18 History [B-12] Levothyroxine Sodium 88 mcg PO DAILY 03/26/18 07/23/18 History [Levothyroxine 88mcg (0.088mg) Tab] Polyethylene Glycol 3350 [Miralax 17 gm PO DAILY 03/26/18 07/23/18 History 17gm Packet] Isosorbide Mononitrate [Imdur 60mg 60 mg PO DAILY 03/27/18 07/23/18 History ER tablet] Allergies Allergy/AdvReac Type Severity Reaction Status Date / Time No Known Allergies Allergy Verified 07/23/18 15:32 Exam Vital signs and Labs for Last 24 Hours: Temp Pulse Resp BP Pulse Ox 97.7 F 81 19 139/57 L 98 07/23/18 14:37 07/23/18 18:00 07/23/18 18:00 07/23/18 18:00 07/23/18 18:00 Laboratory Results - last 24 hr 07/23/18 11:07: WBC 8.7, RBC 3.41 L, Hgb 10.6 L, Hct 33.2 L, MCV 97.3, MCH 31.0, MCHC 31.8, RDW 14.8, Plt Count 126 L, MPV 8.0, Neut % (Auto) 69.0, Lymph % (Auto) 20.4, [place] % (Auto) 5.4, Eos % (Auto) 4.8, Baso % (Auto) 0.4, Neut # (Auto) 6.0, Lymph # (Auto) 1.8, [place] # (Auto) 0.5, Eos # (Auto) 0.4, Baso # (Auto) 0.0 07/23/18 11:07: PT 10.7, INR 1.04 07/23/18 11:07: Sodium 139, Potassium 4.3, Chloride 106, Carbon Dioxide 24, Anion Gap 13.3, BUN 19 H, Creatinine 1.04 H, Estimated Creat Clear 40, Estimated GFR 50 L, Est GFR ( Amer) 61, Glucose 172 H, Calcium 8.8, Troponin I 0.33 H 07/23/18 12:57: Activated Clotting Time 221 H* 07/23/18 13:17: Activated Clotting Time 328 H* D 07/23/18 16:29: POC Glucose 146 H I & O for Last 24 hours: Intake & Output 07/21/18 07/22/18 07/23/18 07/24/18 11:59 11:59 11:59 11:59 Intake Total 484 / 484 Balance 484 / 484 Weight 145 lb 153 lb 6 oz Narrative: Patient is pleasant. Has a little bit of epigastric swelling but denies chest pain like she had previously. Heart rate regular. Abdomen soft, lungs are clear, oropharynx clear, no JVD. No peripheral edema. Warm and well-perfused extremities. Able to move all extremities well. Assessment and Plan (1) Epigastric pain Current visit: Yes Status: Acute Category: Medical Code(s): R10.13 - Epigastric pain Trial of GI cocktail. (2) STEMI (ST elevation myocardial infarction) Current visit: Yes Status: Acute Category: Medical Code(s): I21.3 - ST elevation (STEMI) myocardial infarction of unspecified site (3) Coronary artery disease Current visit: No Status: Chronic Category: Medical Code(s): I25.10 - Atherosclerotic heart disease of [place] coronary artery without angina pectoris ANGIOGRAPHIC RESULTS: 1. The left main artery is normal 2. The left anterior descending artery has proximal 30 and 40% stenoses with mid vessel 40% stenoses and a distal 70-80% stenosis along a tortuous bend. The very distal LAD is bluntly occluded with angiographic evidence of thrombus distally 3. The ramus intermedius is a large caliber vessel with a stent in the proximal segment which has diffuse 30-40% concentric in-stent restenosis. The vessel has FLAKITA III flow and supplies a moderate amount of distal myocardium 3. The circumflex artery is a small vestigial vessel and has a proximal to mid vessel focal 90% stenosis however the distal myocardium is small 4. The right coronary artery is a large dominant vessel has proximal tendon 20% stenoses mid vessel 70% focal stenosis. The stent in the proximal vessel is widely patent as is the stent in the distal segment. The focal mid vessel stenosis was calcified without a stent. The distal vessel has 80-90% stenosis as it enters into the posterior lateral ventricular branch and a 60-70% stenosis in the ostial proximal segment of the posterior descending artery 5. The [place] ventriculogram reveals not performed 6. The left ventricular end-diastolic pressure not obtained IMPRESSION: Coronary artery disease as described above Unsuccessful angioplasty of the distal left anterior descending artery Persistent severe stenosis and a very small vestigial nondominant circumflex artery Severe disease in the mid dominant right coronary artery which was revascularized to less than 10% stenosis with 1 drug-eluting stent PLAN: 1. Brilinta and aspirin for one year 2. LDL less than 55 3. Avoidance of tobacco products 4. Medical management for the remaining coronary artery disease 5. Cardiac rehabilitation (4) Diabetes mellitus Current visit: No Status: Chronic Category: Medical Code(s): E11.9 - Type 2 diabetes mellitus without complications Hold metformin, sliding scale insulin
[2018-07-24 05:51] LABS: Basophils % 0.2 % (0.1-2.0); Eosinophils # 0.1 K/mm3 (0.0-0.4); Eosinophils % 0.5 % (0.1-12.0); Hematocrit 31.6 % (37.0-47.0); Hemoglobin 10.3 g/dL (12.2-16.2); Lymphocytes # 1.1 K/mm3 (0.7-4.5); Lymphocytes % 9.8 % (10-50); Mean Corpuscular HGB Conc 32.5 g/dL (31.8-35.4); Mean Corpuscular Hemoglobin 31.3 pg (27.0-31.2); Mean Corpuscular Volume 96.1 fl (81-99); Mean Platelet Volume 8.1 fl (7.4-10.4); Monocytes # 0.7 K/mm3 (0.1-1.0); Monocytes % 6.6 % (1.7-9.3); Neutrophils % 82.8 % (37.0-80.0); Platelet Count 96 K/mm3 (142-424); Red Blood Count 3.29 M/mm3 (4.20-5.40); Red Cell Distribution Width 14.9 % (11.5-17.5); White Blood Count 10.9 K/mm3 (4.8-10.8)
[2018-07-24 06:06] LABS: Calcium 8.3 mg/dL (8.5-10.1); Chol/HDL Ratio 2.2 (1-3.5)
--- NOTE | 2018-07-24 08:18 | Pharmacy Consult Notes ---
[facility] Pharmacy VTE Monitoring - Patient Demographics Admission date: 07/23/18 Report Date: 07/24/18 Time: 08:18 Allergies/Adverse Reactions: Patient Allergies No Known Allergies Allergy (Verified 07/23/18 15:32) Height: 1.6 m Weight: 70.477 kg Patient Problems: Current Active Problems STEMI (ST elevation myocardial infarction) (Acute) Epigastric pain (Acute) - VTE Risk Labs: VTE Related Lab Results Hgb 10.3 g/dL (12.2-16.2) L 07/24/18 05:20 Hct 31.6 % (37.0-47.0) L 07/24/18 05:20 Plt Count 96 K/mm3 (142-424) L 07/24/18 05:20 PT 10.7 seconds (9.4-11.8) 07/23/18 11:07 INR 1.04 (0.9-1.1) 07/23/18 11:07 BUN 14 mg/dL (7-18) D 07/24/18 05:20 Creatinine 0.91 mg/dL (0.55-1.02) 07/24/18 05:20 Estimated Creat Clear 45 mL/min (50-200) 07/24/18 05:20 Was VTE Risk Assessment Performed: Yes VTE Score: 4 VTE Risk Level: Low Risk - Prophylaxis VTE Prophylaxis Ordered?: Yes Types of VTE Prophylaxis: TEDS Knee High Location of Applied Device: Bilateral Lower Extremeties - VTE Diagnosis Confirmed Treatment or plan recommended: Continue Current Treatment
--- NOTE | 2018-07-24 09:50 | Progress Note ---
Internal Medicine - PN: Subj *Date: 07/24/18 *Time: 09:49 Interval history: Patient had some chest pain through the night and some disorientation. This seems to be better this morning. Had EKG changes consistent with progression of her acute myocardial infarction but no hemo-dynamic instability. Cardiology consulted via phone and felt that this was because of the non- distensible lesion in the LAD. However, patient this morning feels better, blood pressures are improving/stable and she has no pain. Exam Vital signs and Labs for Last 24 Hours: Temp Pulse Resp BP Pulse Ox 99.2 F 85 20 107/50 L 97 07/24/18 08:00 07/24/18 08:00 07/24/18 08:00 07/24/18 08:00 07/24/18 08:00 Laboratory Results - last 24 hr 07/23/18 11:07: WBC 8.7, RBC 3.41 L, Hgb 10.6 L, Hct 33.2 L, MCV 97.3, MCH 31.0, MCHC 31.8, RDW 14.8, Plt Count 126 L, MPV 8.0, Neut % (Auto) 69.0, Lymph % (Auto) 20.4, [place] % (Auto) 5.4, Eos % (Auto) 4.8, Baso % (Auto) 0.4, Neut # (Auto) 6.0, Lymph # (Auto) 1.8, [place] # (Auto) 0.5, Eos # (Auto) 0.4, Baso # (Auto) 0.0 07/23/18 11:07: PT 10.7, INR 1.04 07/23/18 11:07: Sodium 139, Potassium 4.3, Chloride 106, Carbon Dioxide 24, Anion Gap 13.3, BUN 19 H, Creatinine 1.04 H, Estimated Creat Clear 40, Estimated GFR 50 L, Est GFR ( Amer) 61, Glucose 172 H, Calcium 8.8, Troponin I 0.33 H 07/23/18 12:57: Activated Clotting Time 221 H* 07/23/18 13:17: Activated Clotting Time 328 H* D 07/23/18 16:29: POC Glucose 146 H 07/23/18 19:46: POC Glucose 176 H 07/24/18 05:20: WBC 10.9 H D, RBC 3.29 L, Hgb 10.3 L, Hct 31.6 L, MCV 96.1, MCH 31.3 H, MCHC 32.5, RDW 14.9, Plt Count 96 L, MPV 8.1, Neut % (Auto) 82.8 H, Lymph % (Auto) 9.8 L, [place] % (Auto) 6.6, Eos % (Auto) 0.5, Baso % (Auto) 0.2, Neut # (Auto) 9.0 H, Lymph # (Auto) 1.1, [place] # (Auto) 0.7, Eos # (Auto) 0.1, Baso # (Auto) 0.0 07/24/18 05:20: Sodium 135 L, Potassium 4.0, Chloride 103, Carbon Dioxide 23, Anion Gap 13.0, BUN 14 D, Creatinine 0.91, Estimated Creat Clear 45, Estimated GFR 59, Est GFR ( Amer) 71, Glucose 145 H, Calcium 8.3 L, Triglycerides 90, Cholesterol 103 L, LDL Cholesterol 38, VLDL Cholesterol 18, HDL Cholesterol 47, Cholesterol/HDL Ratio 2.2 07/24/18 06:01: POC Glucose 164 H I & O for Last 24 hours: Intake & Output 07/21/18 07/22/18 07/23/18 07/24/18 11:59 11:59 11:59 11:59 Intake Total 1033 / 1033 Balance 1033 / 1033 Weight 145 lb 155 lb 6 oz Narrative: Patient is awake. Oriented x2. Oropharynx clear, no JVD. Anterior lung [place] are clear, heart rate regular. Abdomen soft and nontender. No peripheral edema noted Assessment and Plan (1) Epigastric pain Current visit: Yes Status: Acute Category: Medical Code(s): R10.13 - Epigastric pain Pain control. See plan below (2) STEMI (ST elevation myocardial infarction) Current visit: Yes Status: Acute Category: Medical Code(s): I21.3 - ST elevation (STEMI) myocardial infarction of unspecified site Treat symptomatically and medically with anticoagulation, beta-blockers, nitrates etc. (3) Coronary artery disease Current visit: No Status: Chronic Category: Medical Code(s): I25.10 - Atherosclerotic heart disease of [place] coronary artery without angina pectoris (4) Diabetes mellitus Current visit: No Status: Chronic Category: Medical Code(s): E11.9 - Type 2 diabetes mellitus without complications Sliding scale insulin, hold metformin
[2018-07-25 05:44] LABS: Basophils % 0.2 % (0.1-2.0); Eosinophils # 0.1 K/mm3 (0.0-0.4); Eosinophils % 0.6 % (0.1-12.0); Hematocrit 29.5 % (37.0-47.0); Hemoglobin 9.7 g/dL (12.2-16.2); Lymphocytes # 1.2 K/mm3 (0.7-4.5); Lymphocytes % 12.5 % (10-50); Mean Corpuscular HGB Conc 32.9 g/dL (31.8-35.4); Mean Corpuscular Hemoglobin 31.4 pg (27.0-31.2); Mean Corpuscular Volume 95.3 fl (81-99); Mean Platelet Volume 8.9 fl (7.4-10.4); Monocytes # 0.6 K/mm3 (0.1-1.0); Monocytes % 6.7 % (1.7-9.3); Neutrophils # 7.7 K/mm3 (1.8-7.8); Platelet Count 93 K/mm3 (142-424); Red Blood Count 3.09 M/mm3 (4.20-5.40); Red Cell Distribution Width 14.8 % (11.5-17.5); White Blood Count 9.6 K/mm3 (4.8-10.8)
[2018-07-25 05:58] LABS: Albumin Level 2.5 gm/dL (3.4-5.0); Albumin/Globulin Ratio 0.7 (1.1-1.8); Anion Gap 10.8 mEq/L (5-15); Bilirubin,Total 0.9 mg/dL (0.2-1.0); Calcium 7.9 mg/dL (8.5-10.1); Globulin 3.4 gm/dl (1.3-3.2); Potassium 3.8 mmoL/L (3.5-5.1); Total Protein,Serum 5.9 gm/dL (6.4-8.2)
--- NOTE | 2018-07-25 08:52 | Discharge Summary ---
General - General Admission date:: 07/23/18 Discharge date: 07/25/18 HPI HPI: 87-year-old white female with history of type 2 diabetes, controlled well with metformin, hyperlipidemia and previous history of coronary atherosclerosis with several stent placements in the remote past-detailed in cardiology procedure note-who awoke this morning with some crushing chest pain and dyspnea, was brought to the emergency department. Elevated ST segments and troponins were noted, diagnosed with STEMI and taken emergently to the catheterization lab where 2 stents were placed. I am seeing her now on the floor and she is pain-free and comfortable. Hospital Course Hospital Course: Patient was admitted after her catheterization he did well initially, had some chest pain through the night that was relieved with GI cocktail and Ativan, she did well in the next day was fine. She walked around the room and did her self- care activities. Last night she slept well. Did well with eating and this morning wished to be discharged. Exam had normalized. She discharged home. Please note cardiology results from catheterization as below: ANGIOGRAPHIC RESULTS: 1. The left main artery is normal 2. The left anterior descending artery has proximal 30 and 40% stenoses with mid vessel 40% stenoses and a distal 70-80% stenosis along a tortuous bend. The very distal LAD is bluntly occluded with angiographic evidence of thrombus distally 3. The ramus intermedius is a large caliber vessel with a stent in the proximal segment which has diffuse 30-40% concentric in-stent restenosis. The vessel has FLAKITA III flow and supplies a moderate amount of distal myocardium 3. The circumflex artery is a small vestigial vessel and has a proximal to mid vessel focal 90% stenosis however the distal myocardium is small 4. The right coronary artery is a large dominant vessel has proximal tendon 20% stenoses mid vessel 70% focal stenosis. The stent in the proximal vessel is widely patent as is the stent in the distal segment. The focal mid vessel stenosis was calcified without a stent. The distal vessel has 80-90% stenosis as it enters into the posterior lateral ventricular branch and a 60-70% stenosis in the ostial proximal segment of the posterior descending artery 5. The [place] ventriculogram reveals not performed 6. The left ventricular end-diastolic pressure not obtained IMPRESSION: Coronary artery disease as described above Unsuccessful angioplasty of the distal left anterior descending artery Persistent severe stenosis and a very small vestigial nondominant circumflex artery Severe disease in the mid dominant right coronary artery which was revascularized to less than 10% stenosis with 1 drug-eluting stent PLAN: 1. Brilinta and aspirin for one year 2. LDL less than 55 3. Avoidance of tobacco products 4. Medical management for the remaining coronary artery disease 5. Cardiac rehabilitation Objective Vital signs: Temp Pulse Resp BP Pulse Ox 99.1 F 81 24 121/66 90 L 07/25/18 04:15 07/25/18 06:00 07/25/18 06:00 07/25/18 06:00 07/25/18 06:00 Narrative: Patient is pleasant, awake, oriented. Heart rate regular. No JVD. Oropharynx clear. Lungs are clear in the anterior [place]. Abdomen soft, no edema. Wearing compression stockings. Results Labs on day of discharge: Labs from last 24 hours 07/25/18 07/25/18 07/25/18 05:36 05:36 05:19 WBC 9.6 RBC 3.09 L Hgb 9.7 L Hct 29.5 L MCV 95.3 MCH 31.4 H MCHC 32.9 RDW 14.8 Plt Count 93 L MPV 8.9 Neut % (Auto) 80.0 Lymph % (Auto) 12.5 [place] % (Auto) 6.7 Eos % (Auto) 0.6 Baso % (Auto) 0.2 Neut # (Auto) 7.7 Lymph # (Auto) 1.2 [place] # (Auto) 0.6 Eos # (Auto) 0.1 Baso # (Auto) 0.0 Sodium 136 Potassium 3.8 Chloride 105 Carbon Dioxide 24 Anion Gap 10.8 BUN 13 Creatinine 0.95 Estimated Creat Clear 45 Estimated GFR 56 L Est GFR ( Amer) 67 Glucose 141 H POC Glucose 142 H Calcium 7.9 L Total Bilirubin 0.9 AST 59 H ALT 22 Alkaline Phosphatase 80 Total Protein 5.9 L Albumin 2.5 L Globulin 3.4 H Albumin/Globulin Ratio 0.7 L 07/24/18 07/24/18 07/24/18 19:59 16:16 11:05 WBC RBC Hgb Hct MCV MCH MCHC RDW Plt Count MPV Neut % (Auto) Lymph % (Auto) [place] % (Auto) Eos % (Auto) Baso % (Auto) Neut # (Auto) Lymph # (Auto) [place] # (Auto) Eos # (Auto) Baso # (Auto) Sodium Potassium Chloride Carbon Dioxide Anion Gap BUN Creatinine Estimated Creat Clear Estimated GFR Est GFR ( Amer) Glucose POC Glucose 143 H 171 H 156 H Calcium Total Bilirubin AST ALT Alkaline Phosphatase Total Protein Albumin Globulin Albumin/Globulin Ratio DS: Diagnosis - Discharge Diagnosis (1) Epigastric pain Status: Chronic (2) STEMI (ST elevation myocardial infarction) Status: Resolved (3) Coronary artery disease Status: Chronic (4) Diabetes mellitus Status: Chronic Discharge Plan - Patient Discharge Instructions ACTIVITY: Limited activity DIET: low fat, low cholesterol Patient Instructions: Heart Attack, Type 2 Diabetes, Cardiac Catheterization, Coronary Stenting, Surgical Site Infection - Follow up Plan Follow up with: Bandar Bowman MD [Staff Physician] - 1 week Jt Santos MD [Staff Physician] - 07/30/18 Disposition: Home, Self-Assisted Medications: Home Medications Medication Instructions Recorded Confirmed Type Atorvastatin Calcium [Atorvastatin 80 mg PO DAILY 11/13/17 07/23/18 History 80mg Tab] Carvedilol [Carvedilol 6.25mg Tab] 6.25 mg PO BID 11/13/17 07/23/18 History Clopidogrel Bisulfate [Plavix 75mg 75 mg PO DAILY 11/13/17 07/23/18 History Tab] Metformin HCl [Metformin HCl ER] 500 mg PO DAILY 11/13/17 07/23/18 History Aspirin [Aspir 81] 81 mg PO DAILY 03/26/18 07/23/18 History Levothyroxine Sodium 88 mcg PO DAILY 03/26/18 07/23/18 History [Levothyroxine 88mcg (0.088mg) Tab] Polyethylene Glycol 3350 [Miralax 17 gm PO DAILY 03/26/18 07/23/18 History 17gm Packet] Isosorbide Mononitrate [Imdur 60mg 60 mg PO DAILY 03/27/18 07/23/18 History ER tablet] Cyanocobalamin (Vitamin B-12) 1,000 mcg IM WEEKLY 07/24/18 07/24/18 History [Cyanocobalamin 1,000mcg/mL Vial] Ticagrelor [Brilinta 90mg Tablet] 90 mg PO BID #60 tablet 07/25/18 Rx Prescriptions/Medication Reconciliation: New Ticagrelor [Brilinta 90mg Tablet] 90 mg PO BID #60 tablet Continue Carvedilol [Carvedilol 6.25mg Tab] 6.25 mg PO BID Atorvastatin Calcium [Atorvastatin 80mg Tab] 80 mg PO DAILY Levothyroxine Sodium [Levothyroxine 88mcg (0.088mg) Tab] 88 mcg PO DAILY Polyethylene Glycol 3350 [Miralax 17gm Packet] 17 gm PO DAILY Cyanocobalamin (Vitamin B-12) [Cyanocobalamin 1,000mcg/mL Vial] 1,000 mcg IM WEEKLY Metformin HCl [Metformin HCl ER] 500 mg PO DAILY Aspirin [Aspir 81] 81 mg PO DAILY Isosorbide Mononitrate [Imdur 60mg ER tablet] 60 mg PO DAILY Discontinued Clopidogrel Bisulfate [Plavix 75mg Tab] 75 mg PO DAILY Other Amb Orders: Consult to Cardiac Rehabilitation Location: Cardiac Rehabilitation
== END 2018-07-25 10:57 | disposition home or self-care (01) | DRG 247 ==
LOC: ER 11:01 → CATHLAB 12:00 → ER 12:31 → 2ND 14:00
PROVIDERS: ADMIT Internal Medicine; ATTEND Internal Medicine Adolescent Medicine
CPT/HCPCS: 36415; 71010; 71045; 80048; 80053; 80061; 82962; 84484; 85025; 85347; 85610; 92928; 92941; 93005; 93458; 96374; 96375; 99152; 99153; 99282; C1725; C1760; C1769; C1876; C1894; C9600; C9606; J1644; J2405; Q9967